=== PATIENT | female | born 1980 | race Caucasian/White ===

== ENCOUNTER 2018-09-10 09:29 | Emergency (ER) | payer MEDICAID ==
[2018-09-10 09:47] VITALS: RESP 16; TEMP 97.4
--- NOTE | 2018-09-10 10:05 | C.PDOC ---
History Of Present Illness Patient reports swelling and pain to bilateral feel for "a couple of days". Denies injury. States that she is homeless and has been walking around a lot in the cold. Reports some paresthesias intermittently but not complete numbness. Time Seen by Provider: 09/10/18 09:46 Chief Complaint (Nursing): Lower Extremity Problem/Injury Past Medical History Reviewed: Historical Data, Nursing Documentation, Vital Signs Vital Signs: Last Vital Signs Temp 97.4 F L 09/10/18 09:44 Pulse 94 H 09/10/18 09:44 Resp 16 09/10/18 09:44 BP 125/87 09/10/18 09:44 Pulse Ox 100 09/10/18 09:44 - Medical History PMH: Asthma Family History: States: Unknown Family Hx - Social History Hx Tobacco Use: Yes Hx Alcohol Use: No Hx Substance Use: No - Immunization History Hx Tetanus Toxoid Vaccination: No Hx Influenza Vaccination: No Hx Pneumococcal Vaccination: No Review Of Systems Except As Marked, All Systems Reviewed And Found Negative. Constitutional: Negative for: Fever Cardiovascular: Negative for: Chest Pain Respiratory: Negative for: Cough, Shortness of Breath Gastrointestinal: Negative for: Nausea, Vomiting, Abdominal Pain, Diarrhea Neurological: Negative for: Weakness, Numbness Physical Exam - Physical Exam Appears: Well, Non-toxic, No Acute Distress Skin: Normal Color Eye(s): bilateral: Normal Inspection Cardiovascular: Rhythm Regular Respiratory: Normal Breath Sounds Gastrointestinal/Abdominal: Normal Exam Extremity: Normal ROM, No Deformity, Other (Bilateral feet with 2+ DP pulse, warm and dry, except for R toes which are somewhat cyanotic and cool to touch. No swelling or deformity noted to feet.) Neurological/Psych: Oriented x3, Normal Motor, Normal Sensation ED Course And Treatment O2 Sat by Pulse Oximetry: 100 Medical Decision Making Medical Decision Making: Patient advised to try to keep feet warm and avoid wearing wet socks. Elevate feet when lying down. Provided her with a pair of hospital socks. Advised her to return for any new or worsening symptoms. Disposition - Disposition Disposition: HOME/ ROUTINE Disposition Time: 10:07 Condition: STABLE Additional Instructions: SUKUMAR RAO, thank you for letting us take care of you today. Your provider was Hillary Polanco MD and you were treated for SWOLLEN FEET. The emergency medical care you received today was directed at your acute symptoms. If you were prescribed any medication, please fill it and take as directed. It may take several days for your symptoms to resolve. Return to the Emergency Department if your symptoms worsen, do not improve, or if you have any other problems. Please contact your doctor or call one of the physicians/clinics you have been referred to that are listed on the Patient Visit Information form that is included in your discharge packet. Bring any paperwork you were given at discharge with you along with any medications you are taking to your follow up visit. Our treatment cannot replace ongoing medical care by a primary care provider outside of the emergency department. Thank you for allowing the [facility] team to be part of your care today. If you had an X-Ray or CT scan: A Radiologist will review the ED reading if any change in treatment is needed we will contact you. If you had a blood, urine, or wound culture: It will take several days for the results, if any change in treatment is needed we will contact you. If you had an STI test: It will take 48 hours for the results. Please call after 1 week if you have not heard back. Instructions: [employer] ([place]) Forms: [employer] ([place]) - Clinical Impression Clinical Impression: [place] of toe of right foot, Bilateral foot pain
[2018-09-10 10:23] VITALS: BP 139/85; PULSE 81; O2SAT 98
== END 2018-09-10 10:22 | disposition home or self-care (01) ==
LOC: C.ER 09:29
DX: M79.672 Pain in left foot (principal); M79.671 Pain in right foot; T33.831A Superficial frostbite of right toe(s), initial encounter; X31.XXXA Exposure to excessive natural cold, initial encounter; Z59.0 Homelessness